=== PATIENT | female | born 1980 | race Caucasian/White ===

== ENCOUNTER 2020-09-26 15:41 | Outpatient (REF) | payer OTHER, SELFPAY ==
[2020-09-26 21:03] LABS: HCT 41.2 % (36.0-46.0); HGB 13.1 g/dL (11.2-15.7); MCH 26.8 pg (27.0-33.0); MCHC 31.8 % (32.0-36.0); MCV 84.3 fL (80-95); MPV 9.7 fL (8.0-11.0); Platelet Count 227 10^3/uL (130-400); RBC 4.89 10^6/uL (3.93-5.22); RDW 15.4 % (11.7-14.6); RDW-SD 46.9 fL; WBC 4.09 10^3/uL (4.4-10.8)
[2020-09-26 21:40] LABS: Vitamin D 25 Total 30.5 ng/mL (30-100)
[2020-09-26 21:43] LABS: Anion Gap 9.7 mmol/L (3-11); BUN 10 mg/dL (7-18); CO2 27.3 mmol/L (21.0-32.0); CREATININE 0.7 mg/dL (0.55-1.02); Calcium 8.8 mg/dL (8.5-10.1); Calculated LDL 116 mg/dL (<100); Chloride 104 mmol/L (98-107); Cholesterol 204 mg/dL (<200); Glucose 90 mg/dL (74-106); HDL Cholesterol 71 mg/dL (40-60); Sodium 141 mmol/L (136-145); TSH (W/Ref FT4) 0.48 uIU/mL (0.36-3.74); Triglyceride 88 mg/dL (<150); Vitamin B12 176 pg/mL (193-986)
== END 2020-09-26 15:42 | disposition home or self-care (01) ==
LOC: NCHCN 15:41
PROVIDERS: PCP Nurse Practitioner Family; Visit Provider Nurse Practitioner Family
DX: Z00.00 Encounter for general adult medical examination without abnormal findings (principal); F32.9 Major depressive disorder, single episode, unspecified; Z13.220 Encounter for screening for lipoid disorders; Z13.228 Encounter for screening for other metabolic disorders
CPT/HCPCS: 80048; 80061; 82306; 85027; 82607; 84443

== ENCOUNTER 2024-03-21 16:44 | Outpatient (REF) | payer BC, SELFPAY ==
[2024-03-21 22:20] LABS: HCT 40.3 % (36.0-46.0); HGB 13.3 g/dL (11.2-15.7); MCH 27.1 pg (27.0-33.0); MCV 82 fL (80-95); MPV 9.1 fL (8.0-11.0); Platelet Count 282 10^3/uL (130-400); RDW 12.7 % (11.7-14.6); RDW-SD 38.1 fL; WBC 5.92 10^3/uL (4.4-10.8)
[2024-03-21 23:06] LABS: Calculated LDL 75 mg/dL (<100); Cholesterol 162 mg/dL (<200); HDL Cholesterol 62 mg/dL (40-60); TSH (W/Ref FT4) 0.14 uIU/mL (0.36-3.74); Triglyceride 125 mg/dL (<150); Vitamin D 25 Total 19.1 ng/mL (30-100)
[2024-03-21 23:23] LABS: FREE T4 0.89 ng/dL (0.76-1.46)
== END 2024-03-21 16:45 | disposition home or self-care (01) ==
LOC: NCHCN 16:44
PROVIDERS: PCP Family Medicine; Visit Provider Family Medicine
DX: Z13.220 Encounter for screening for lipoid disorders (principal); R53.83 Other fatigue
CPT/HCPCS: 80061; 82306; 85027; 84439; 84443

== ENCOUNTER 2024-07-26 09:44 | Outpatient (REF) | payer BC, SELFPAY ==
--- NOTE | 2024-07-26 09:10 | PAPFT_PTH ---
PATIENT: Rissa Holguin LOC: [facility] U#:[id number] AGE/SX: 44/F ROOM: RE07/26/[address]: Nishi Espinoza NP : 1980 BED: DIS: 07/26/2024 SPEC #: [id number] RECD: 07/26/24 12:57 STATUS: MADI PALACIO #: [id number] GABRIELLA: 07/26/24 09:[address]: Nishi Espinoza NP DEPT: [facility] Cytology RECD BY: Carol Pearce Tissues: 1 - CX/ENDOCX FOR PAP SMEARS Procedures: PAP THIN PREP/[facility] Screening HPV DNA PROBE Comments: [id number] (HPV 16 & 18/45)
== END 2024-07-26 09:45 | disposition home or self-care (01) ==
LOC: LBN 09:44
PROVIDERS: PCP Family Medicine; Visit Provider Nurse Practitioner Women's Health
DX: Z01.419 Encounter for gynecological examination (general) (routine) without abnormal findings (principal); Z12.4 Encounter for screening for malignant neoplasm of cervix
CPT/HCPCS: 88142; 87624